=== PATIENT | female | born 1985 | race Caucasian/White ===

== ENCOUNTER 2018-04-15 10:25 | Emergency (ER) | payer BC, OTHER ==
[2018-04-15 10:33] VITALS: BP 142/84
--- NOTE | 2018-04-15 10:54 | UC ---
Complaint Female HPI - HPI Summary HPI Summary: Patient has had increased buring with urination, increased her water intake and it went away. Symptoms did return a few days later and have been on and off. denies back pain, abdominal pressure, fever or malaise - History Of Current Complaint Chief Complaint: UCGU Stated Complaint: POSS UTI Time Seen by Provider: 04/15/18 10:46 Hx Obtained From: Patient Hx Last Menstrual Period: 2 weeks ago ?: No - asked for to be performed Onset/Duration: Sudden Onset, Lasting Days Severity Initially: Mild Severity Currently: Mild Pain Intensity: 2 - Allergies/Home Medications Allergies/Adverse Reactions: Allergies Allergy/AdvReac Type Severity Reaction Status Date / Time No Known Allergies Allergy Verified 04/15/18 10:33 Home Medications: Home Medications NK [No Home Medications Reported] 04/15/18 [History Confirmed 04/15/18] PMH/Surg Hx/FS Hx/Imm Hx Previously Healthy: Yes - Surgical History Surgical History: None - Family History Known Family History: Positive: Cardiac Disease - not specified Negative: Hypertension, Diabetes - Social History Alcohol Use: Weekly Substance Use Type: None Smoking Status (MU): Light Every Day Tobacco Smoker Type: Cigarettes Amount Used/How Often: 5 cigs per day Have You Smoked in the Last Year: Yes Review of Systems Constitutional: Negative Skin: Negative Eyes: Negative ENT: Negative Respiratory: Negative Cardiovascular: Negative Gastrointestinal: Negative Genitourinary: Dysuria Motor: Negative Neurovascular: Negative Musculoskeletal: Negative Neurological: Negative Psychological: Negative Is Patient Immunocompromised?: No All Other Systems Reviewed And Are Negative: Yes Physical Exam Triage Information Reviewed: Yes Appearance: Well-Appearing, No Pain Distress, Well-Nourished, Pain Distress Vital Signs: Initial Vital Signs Temp 97.9 F 04/15/18 10:31 Pulse 94 04/15/18 10:31 Resp 18 04/15/18 10:31 BP 142/84 04/15/18 10:31 Pulse Ox 100 04/15/18 10:31 Vital Signs Reviewed: Yes Eye Exam: Normal ENT Exam: Normal Dental Exam: Normal Neck exam: Normal Respiratory Exam: Normal Respiratory: Positive: Chest non-tender, Lungs clear, Normal breath sounds Cardiovascular Exam: Normal Cardiovascular: Positive: RRR, No Murmur, Pulses Normal Abdominal Exam: Normal Abdomen Description: Positive: Nontender, No Organomegaly, Soft, CVA Tenderness (R) - neg, CVA Tenderness (L) - neg Bowel Sounds: Positive: Present Musculoskeletal Exam: Normal Musculoskeletal: Positive: Strength Intact Neurological Exam: Normal Psychological Exam: Normal Skin Exam: Normal Complaint Female Dx - Course Course Of Treatment: hx obtained, exam performed ,meds reviewed, UA was negative , urine culture was sent. Urine neg. no treatment at this time, advised to continue water intake and pedro follow up with culture. - Differential Dx/Diagnosis Differential Diagnosis/HQI/PQRI: Ureteral Stone, Urinary Tract Infection, Other - vaginitis Provider Diagnoses: dysuria Discharge - Sign-Out/Discharge Documenting (check all that apply): Patient Departure - Discharge Plan Condition: Stable Disposition: HOME Patient Education Materials: Dysuria (ED) Referrals: No Primary Care Phys,NOPCP [Primary Care Provider] - Additional Instructions: your UA was negative for infection. I have sent it for culture and we will follow up if treatment is needed. In the meantime continue with hydration, I recommend high dose cranberry supplements 25,500 units daily. - Billing Disposition and Condition Condition: STABLE Disposition: Home
--- NOTE | 2018-04-16 15:47 | UC ---
- Progress Note Progress Note: Urine final with no growth. If still having symptoms - recommend f/u with PCP Discharge - Sign-Out/Discharge Documenting (check all that apply): Post-Discharge Follow Up - Discharge Plan Condition: Stable Disposition: HOME Patient Education Materials: Dysuria (ED) Referrals: No Primary Care Phys,NOPCP [Primary Care Provider] - Additional Instructions: your UA was negative for infection. I have sent it for culture and we will follow up if treatment is needed. In the meantime continue with hydration, I recommend high dose cranberry supplements 25,500 units daily. - Billing Disposition and Condition Condition: STABLE Disposition: Home
== END 2018-04-15 11:20 | disposition home or self-care (01) ==
LOC: UCEAST 10:25
DX: R30.0 Dysuria (principal); F17.210 Nicotine dependence, cigarettes, uncomplicated
CPT/HCPCS: 81003; 84702; 87086; 99211; G0463